=== PATIENT | female | born 1975 | race Caucasian/White ===

== ENCOUNTER → 2018-01-03 08:46 | Outpatient (CLI) | payer OTHER, SELFPAY ==
--- NOTE | 2018-01-03 | DI.US.S_ITS ---
PROCEDURE: US PELVIC COMPLETE INDICATIONS: ABDOMINAL BLOATING TECHNIQUE: Real-time scanning was performed of the pelvic organs, with image documentation. Additional endovaginal scanning was necessary due to incomplete visualization of the adnexal and endometrial structures by transabdominal scanning. COMPARISON: None. FINDINGS: Transabdominal scanning: Limited scanning through the kidneys shows no hydronephrosis. No pathologic free abdominal or pelvic fluid. Endovaginal scanning: Uterus: Uterus is normal in size at 7.6 x 6.1 x 6.5 cm. The endometrium measures 6-7 mm in combined thickness. Hypoechoic uterine lesions are seen, which are attributed to fibroids. They measure as follows: Mid anterior uterus, intramural 3 x 2.5 x 2.6 cm Left posterior uterus, intramural, 1.6 x 0.9 x 1.5 cm Ovaries: The right ovary measures 2.1 x 1.3 x 1 cm. The left ovary measures 3.5 x 1.8 x 2.1 cm. The ovaries have a normal sonographic appearance. No adnexal masses are seen. IMPRESSION: Fibroid uterus, without additional abnormality identified. Dictated by: Ronald Alexandra M.D. on 01/03/2018 at 8:47 Approved by: Ronald Alexandra M.D. on 01/03/2018 at 8:49
== END ==
PROVIDERS: PCP Family Medicine; Visit Provider Nurse Practitioner Family
DX: D25.1 Intramural leiomyoma of uterus (principal); R14.0 Abdominal distension (gaseous)
CPT/HCPCS: 76830; 76856